=== PATIENT | male | born 1950 | race Caucasian/White ===

== ENCOUNTER → 2016-12-05 | Outpatient (CLI) | payer OTHER ==
[~2016-12-05] MED LIST: ABILIFY20 MG PO; ACETAMINOPHEN325 M1 PO; BIOGAIA1 EACH PO; BYSTOLIC 5 MG5 M1 PO; CARVEDILOL25 MG PO; CATAPRES-TTS 20.2 MG TRANSDERM; CEPACOL SORE T1 EAC7 PO; CLONAZEPAM 1 MG1 M1 PO; COLACE100 MG PO; CYMBALTA60 MG PO; DUONEB 2.5-0.5 M3 ML INH; FAMOTIDINE20 MG PO; FENTANYL 1100 MCG/HR TRANSDERM; FENTANYL PA25 MCG/HR TRANSDERM; FENTANYL PA50 MCG/HR TRANSDERM; GLYCOLAX POWDER17 G1 PO; HYDRALAZINE 5050 MG PO; HYDROCODON-ACE1 EAC7 PO; LISINOPRIL20 MG PO; LISINOPRIL40 MG PO; LISINOPRIL5 MG PO; LOPRESSOR25 PO; MINIPRESS2 MG PO; MIRALAX17 GM PO; MIRALAX255 GM PO; MS CONTIN 30 MG30 M1 PO; NAPROSYN500 MG PO; NEURONTIN 400400 M1 PO; NORVASC10 MG PO; NORVASC5 MG PO; POLYETHYLENE G255 GM PO; PREDNISONE 10 M10 M1 PO; PREDNISONE 5 MG5 M1 PO; RESTORIL7.5 MG PO; TAMSULOSIN HCL0.4 M1 PO; TIZANIDINE HCL4 M1 PO; VITAMIN D31000 UNI2 PO; WELLBUTRIN 100100 MG PO; WELLBUTRIN 75 M75 M1 PO; ZANAFLEX4 M1 PO
== END ==
LOC: RAD 10:57
DX: R06.09 Other forms of dyspnea (principal)